=== PATIENT | female | born 1935 | race Caucasian/White ===

== ENCOUNTER → 2016-11-09 | Outpatient (CLI) | payer MEDICARE, BC ==
[~2016-11-09] MED LIST: ACETAMINOPHEN325 MG PO; ASPIR 8181 MG PO; AVAPRO300 MG PO; BYSTOLIC20 MG PO; CEROVITE ADVANC1 TAB PO; COREG12.5 MG PO; CRESTOR40 MG PO; ELIQUIS2.5 MG PO; FELODIPINE ER10 MG PO; FELODIPINE ER5 MG PO; FISH OIL1 GM PO; KLOR-CON M1010 MEQ PO; LANTUS SOL100 UNIT/1 SUBCUT; LASIX40 MG PO; LINZESS145 MCG PO; NITROSTAT0.4 MG SL; NOVOLOG FL100 UNIT/1 SUBCUT; NOVOLOG100 UNIT/2 SUBCUT; SYNTHROID125 MCG PO; TRADJENTA5 MG PO; TRIAMCINOLONE A15 GM TOP; VESICARE10 MG PO; VGO 401 EACH SUBCUT; ZETIA10 MG PO
== END | disposition short-term general hospital (02) ==
LOC: CLNEPH 10:32 → EDSTATUS 12:02
DX: I13.0 Hypertensive heart and chronic kidney disease with heart failure and stage 1 through stage 4 chronic kidney disease, or unspecified chronic kidney disease (principal); I50.9 Heart failure, unspecified; N18.3 Chronic kidney disease, stage 3 (moderate); I25.10 Atherosclerotic heart disease of native coronary artery without angina pectoris; N17.9 Acute kidney failure, unspecified

== ENCOUNTER 2016-11-12 19:27 | Emergency (ER) | payer MEDICARE, BC ==
[~2016-11-12] VITALS: Ht 167.6 cm; Wt 139.7 kg
[2016-11-13] MEDS ORDERED: ASPIR 8181 MG PO (01:24)
[2016-11-13] MEDS ORDERED: ELIQUIS2.5 MG PO (01:25)
[2016-11-13] MEDS ORDERED: COREG12.5 MG PO (01:25)
[2016-11-13] MEDS ORDERED: FISH OIL1 GM PO (01:26)
[2016-11-13] MEDS ORDERED: LASIX40 MG PO (01:26)
[2016-11-13] MEDS ORDERED: FELODIPINE ER5 MG PO (01:26)
[2016-11-13] MEDS ORDERED: AVAPRO300 MG PO (01:27)
[2016-11-13] MEDS ORDERED: LANTUS SOL100 UNIT/1 SUBCUT (02:06)
[2016-11-13] MEDS ORDERED: CEROVITE ADVANC1 TAB PO (02:07)
[2016-11-13] MEDS ORDERED: SYNTHROID125 MCG PO (02:07)
[2016-11-13] MEDS ORDERED: CRESTOR40 MG PO (02:09)
[2016-11-13] MEDS ORDERED: NITROSTAT0.4 MG SL (02:09)
[2016-11-13] MEDS ORDERED: TRADJENTA5 MG PO (02:10)
[2017-03-11] MEDS ORDERED: BYSTOLIC20 MG PO (16:05)
[2017-03-11] MEDS ORDERED: ZETIA10 MG PO (16:07)
[2017-03-11] MEDS ORDERED: KLOR-CON M1010 MEQ PO (16:15)
[2017-03-11] MEDS ORDERED: TRADJENTA5 MG PO (16:17)
[2017-03-11] MEDS ORDERED: VESICARE10 MG PO (16:18)
[2017-03-12] MEDS ORDERED: FELODIPINE ER10 MG PO (07:58)
[2017-03-12] MEDS ORDERED: VGO 401 EACH SUBCUT (08:12)
[2017-03-12] MEDS ORDERED: NOVOLOG100 UNIT/2 SUBCUT (08:30)
== END 2016-11-12 21:40 | disposition short-term general hospital (02) ==
LOC: ER 19:27
DX: K59.00 Constipation, unspecified (principal); I48.91 Unspecified atrial fibrillation; I11.0 Hypertensive heart disease with heart failure; I50.9 Heart failure, unspecified; E11.9 Type 2 diabetes mellitus without complications; E03.9 Hypothyroidism, unspecified; Z88.0 Allergy status to penicillin

== ENCOUNTER 2016-11-19 14:34 | Emergency (ER) | payer MEDICARE, BC ==
[~2016-11-19] VITALS: Ht 167.6 cm; Wt 141.9 kg
[~2016-11-19 14:34] MED LIST changes: -ACETAMINOPHEN325 MG PO; -BYSTOLIC20 MG PO; -FELODIPINE ER10 MG PO; -KLOR-CON M1010 MEQ PO; -LINZESS145 MCG PO; -NOVOLOG FL100 UNIT/1 SUBCUT; -NOVOLOG100 UNIT/2 SUBCUT; -TRIAMCINOLONE A15 GM TOP; -VESICARE10 MG PO; -VGO 401 EACH SUBCUT; -ZETIA10 MG PO
[2016-11-19] MEDS ORDERED: NOVOLOG FL100 UNIT/1 SUBCUT (16:50)
[2016-11-19] MEDS ORDERED: VESICARE10 MG PO (16:51)
[2016-11-19] MEDS ORDERED: TRIAMCINOLONE A15 GM TOP (16:51)
[2017-03-11] MEDS ORDERED: BYSTOLIC20 MG PO (16:05)
[2017-03-11] MEDS ORDERED: ZETIA10 MG PO (16:07)
[2017-03-11] MEDS ORDERED: KLOR-CON M1010 MEQ PO (16:15)
[2017-03-11] MEDS ORDERED: TRADJENTA5 MG PO (16:17)
[2017-03-11] MEDS ORDERED: VESICARE10 MG PO (16:18)
[2017-03-12] MEDS ORDERED: FELODIPINE ER10 MG PO (07:58)
[2017-03-12] MEDS ORDERED: VGO 401 EACH SUBCUT (08:12)
[2017-03-12] MEDS ORDERED: NOVOLOG100 UNIT/2 SUBCUT (08:30)
== END 2016-11-19 19:15 | disposition short-term general hospital (02) ==
LOC: ER 14:34
DX: K59.00 Constipation, unspecified (principal); I48.91 Unspecified atrial fibrillation; E03.9 Hypothyroidism, unspecified; E78.5 Hyperlipidemia, unspecified; E11.22 Type 2 diabetes mellitus with diabetic chronic kidney disease; I12.9 Hypertensive chronic kidney disease with stage 1 through stage 4 chronic kidney disease, or unspecified chronic kidney disease; N18.9 Chronic kidney disease, unspecified; Z79.4 Long term (current) use of insulin; Z79.82 Long term (current) use of aspirin; Z79.899 Other long term (current) drug therapy; Z88.8 Allergy status to other drugs, medicaments and biological substances

== ENCOUNTER 2016-11-28 13:05 | Observation (INO) | payer MEDICARE, BC ==
[~2016-11-28 13:05] MED LIST changes: +NOVOLOG FL100 UNIT/1 SUBCUT; +TRIAMCINOLONE A15 GM TOP; +VESICARE10 MG PO
[2016-11-28] MEDS ORDERED: ZETIA10 MG PO (13:51)
[2016-11-29] MEDS ORDERED: ACETAMINOPHEN325 MG PO (13:42)
[2016-11-29] MEDS ORDERED: LINZESS145 MCG PO (13:44)
[2017-03-11] MEDS ORDERED: BYSTOLIC20 MG PO (16:05)
[2017-03-11] MEDS ORDERED: ZETIA10 MG PO (16:07)
[2017-03-11] MEDS ORDERED: KLOR-CON M1010 MEQ PO (16:15)
[2017-03-11] MEDS ORDERED: TRADJENTA5 MG PO (16:17)
[2017-03-11] MEDS ORDERED: VESICARE10 MG PO (16:18)
[2017-03-12] MEDS ORDERED: FELODIPINE ER10 MG PO (07:58)
[2017-03-12] MEDS ORDERED: VGO 401 EACH SUBCUT (08:12)
[2017-03-12] MEDS ORDERED: NOVOLOG100 UNIT/2 SUBCUT (08:30)
== END 2016-11-29 14:28 | disposition short-term general hospital (02) ==
LOC: IP 13:05 → OBS 13:05 → IP 13:05
PROVIDERS: ADMIT Family Medicine
DX: K59.00 Constipation, unspecified (principal); I25.10 Atherosclerotic heart disease of native coronary artery without angina pectoris; I48.91 Unspecified atrial fibrillation; E11.22 Type 2 diabetes mellitus with diabetic chronic kidney disease; I12.9 Hypertensive chronic kidney disease with stage 1 through stage 4 chronic kidney disease, or unspecified chronic kidney disease; N18.4 Chronic kidney disease, stage 4 (severe); E11.40 Type 2 diabetes mellitus with diabetic neuropathy, unspecified; E11.3299 Type 2 diabetes mellitus with mild nonproliferative diabetic retinopathy without macular edema, unspecified eye; E11.51 Type 2 diabetes mellitus with diabetic peripheral angiopathy without gangrene; E11.65 Type 2 diabetes mellitus with hyperglycemia; E03.9 Hypothyroidism, unspecified; E66.9 Obesity, unspecified; G47.30 Sleep apnea, unspecified; Z88.6 Allergy status to analgesic agent; Z88.8 Allergy status to other drugs, medicaments and biological substances; Z79.01 Long term (current) use of anticoagulants; Z79.82 Long term (current) use of aspirin; Z79.899 Other long term (current) drug therapy; Z90.89 Acquired absence of other organs; Z90.49 Acquired absence of other specified parts of digestive tract; Z95.1 Presence of aortocoronary bypass graft; Z98.890 Other specified postprocedural states
CPT/HCPCS: A9150; G0378; G0379; J1815

== ENCOUNTER 2016-12-01 13:40 | Emergency (ER) | payer MEDICARE, BC ==
[~2016-12-01] VITALS: Ht 167.6 cm; Wt 143.3 kg
[~2016-12-01 13:40] MED LIST changes: +ACETAMINOPHEN325 MG PO; +LINZESS145 MCG PO; +ZETIA10 MG PO
[2017-03-11] MEDS ORDERED: BYSTOLIC20 MG PO (16:05)
[2017-03-11] MEDS ORDERED: ZETIA10 MG PO (16:07)
[2017-03-11] MEDS ORDERED: KLOR-CON M1010 MEQ PO (16:15)
[2017-03-11] MEDS ORDERED: TRADJENTA5 MG PO (16:17)
[2017-03-11] MEDS ORDERED: VESICARE10 MG PO (16:18)
[2017-03-12] MEDS ORDERED: FELODIPINE ER10 MG PO (07:58)
[2017-03-12] MEDS ORDERED: VGO 401 EACH SUBCUT (08:12)
[2017-03-12] MEDS ORDERED: NOVOLOG100 UNIT/2 SUBCUT (08:30)
== END 2016-12-01 15:34 | disposition short-term general hospital (02) ==
LOC: ER 13:40
DX: I48.91 Unspecified atrial fibrillation (principal); I25.10 Atherosclerotic heart disease of native coronary artery without angina pectoris; E78.5 Hyperlipidemia, unspecified; E03.9 Hypothyroidism, unspecified; E11.22 Type 2 diabetes mellitus with diabetic chronic kidney disease; I12.9 Hypertensive chronic kidney disease with stage 1 through stage 4 chronic kidney disease, or unspecified chronic kidney disease; N18.9 Chronic kidney disease, unspecified; E11.40 Type 2 diabetes mellitus with diabetic neuropathy, unspecified; Z79.82 Long term (current) use of aspirin; Z79.4 Long term (current) use of insulin; Z79.899 Other long term (current) drug therapy; Z90.49 Acquired absence of other specified parts of digestive tract; Z95.1 Presence of aortocoronary bypass graft; Z98.890 Other specified postprocedural states

== ENCOUNTER → 2016-12-08 | Outpatient (CLI) | payer MEDICARE, BC ==
[~2016-12-08] MED LIST changes: +BYSTOLIC20 MG PO; +FELODIPINE ER10 MG PO; +KLOR-CON M1010 MEQ PO; +NOVOLOG100 UNIT/2 SUBCUT; +VGO 401 EACH SUBCUT
== END | disposition short-term general hospital (02) ==
LOC: CLCARD 10:45
DX: I48.2 Chronic atrial fibrillation (principal); I25.10 Atherosclerotic heart disease of native coronary artery without angina pectoris; I10 Essential (primary) hypertension; E78.5 Hyperlipidemia, unspecified; E11.9 Type 2 diabetes mellitus without complications; N28.9 Disorder of kidney and ureter, unspecified; E66.01 Morbid (severe) obesity due to excess calories

== ENCOUNTER → 2016-12-14 | Outpatient (CLI) | payer MEDICARE, BC | END | disposition short-term general hospital (02) | LOC: CLNEPH 14:11 | DX: E11.22 Type 2 diabetes mellitus with diabetic chronic kidney disease (principal); I12.9 Hypertensive chronic kidney disease with stage 1 through stage 4 chronic kidney disease, or unspecified chronic kidney disease; N18.3 Chronic kidney disease, stage 3 (moderate); N17.9 Acute kidney failure, unspecified; E78.5 Hyperlipidemia, unspecified; R80.9 Proteinuria, unspecified; R60.9 Edema, unspecified; I25.10 Atherosclerotic heart disease of native coronary artery without angina pectoris; G47.30 Sleep apnea, unspecified; E66.9 Obesity, unspecified; E07.9 Disorder of thyroid, unspecified; E11.40 Type 2 diabetes mellitus with diabetic neuropathy, unspecified; R80.0 Isolated proteinuria ==

== ENCOUNTER → 2016-12-22 | Outpatient (CLI) | payer MEDICARE, BC | END | disposition short-term general hospital (02) | LOC: CLCARD 08:01 | DX: I48.91 Unspecified atrial fibrillation (principal); I25.10 Atherosclerotic heart disease of native coronary artery without angina pectoris; I11.0 Hypertensive heart disease with heart failure; I50.9 Heart failure, unspecified; E78.5 Hyperlipidemia, unspecified; E11.9 Type 2 diabetes mellitus without complications; N18.9 Chronic kidney disease, unspecified ==

== ENCOUNTER → 2017-01-19 | Outpatient (CLI) | payer MEDICARE, BC | END | disposition short-term general hospital (02) | LOC: CLCARD 11:03 | DX: I48.2 Chronic atrial fibrillation (principal); I13.0 Hypertensive heart and chronic kidney disease with heart failure and stage 1 through stage 4 chronic kidney disease, or unspecified chronic kidney disease; I50.9 Heart failure, unspecified; E11.22 Type 2 diabetes mellitus with diabetic chronic kidney disease; N18.9 Chronic kidney disease, unspecified; R60.9 Edema, unspecified; E66.01 Morbid (severe) obesity due to excess calories; I25.10 Atherosclerotic heart disease of native coronary artery without angina pectoris; E78.5 Hyperlipidemia, unspecified; Z95.1 Presence of aortocoronary bypass graft ==

== ENCOUNTER → 2017-02-16 | Outpatient (CLI) | payer MEDICARE, BC | END | disposition short-term general hospital (02) | LOC: CLCARD 08:45 | DX: I13.0 Hypertensive heart and chronic kidney disease with heart failure and stage 1 through stage 4 chronic kidney disease, or unspecified chronic kidney disease (principal); I50.9 Heart failure, unspecified; E11.22 Type 2 diabetes mellitus with diabetic chronic kidney disease; N18.9 Chronic kidney disease, unspecified; I25.10 Atherosclerotic heart disease of native coronary artery without angina pectoris; I48.2 Chronic atrial fibrillation; E66.01 Morbid (severe) obesity due to excess calories; Z95.1 Presence of aortocoronary bypass graft ==